=== PATIENT | male | born 1980 | race Caucasian/White ===

== ENCOUNTER 2019-01-24 10:13 | Emergency (ER) | payer MEDICAID ==
[~2019-01-24] VITALS: Ht 188 cm; Wt 90.0 kg
[~2019-01-24 10:13] MED LIST: LORATADINE 10MG TABLET PO SCH
[2019-01-24 10:36] VITALS: BP 141/85
[2019-01-24] MEDS ORDERED: LORA10TA7 PO (10:40)
[2019-01-24] MEDS ORDERED: DIPH25CA83 PO (10:40)
[2019-01-24] MEDS ORDERED: NAPR220T66 PO (10:40)
[2019-01-24] MEDS ORDERED: FAMOTIDINE 20MG TABLET PO ONE (12:00)
[2019-01-24] MEDS ORDERED: PREDNISONE 20MG TABLET PO ONE (12:00)
[2019-01-25] MEDS ORDERED: LORATADINE 10MG TABLET PO SCH (09:00)
== END 2019-01-24 12:57 | disposition home or self-care (01) ==
LOC: ER 10:13
DX: T78.40XA Allergy, unspecified, initial encounter (principal); X58.XXXA Exposure to other specified factors, initial encounter
CPT/HCPCS: 99284; J7512; 99283